=== PATIENT | female | born 2000 | race Caucasian/White ===

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

== ENCOUNTER 2023-06-04 12:59 | Emergency (ER) | payer SELFPAY ==
[~2023-06-04] VITALS: Wt 72.1 kg
[2023-06-04] MEDS ORDERED: VIBRAMYCIN100 MG PO (14:31)
== END 2023-06-04 14:56 | disposition home or self-care (01) ==
LOC: ED 12:59
DX: L03.115 Cellulitis of right lower limb (principal); Z79.2 Long term (current) use of antibiotics; Z79.899 Other long term (current) drug therapy; Z98.890 Other specified postprocedural states

== ENCOUNTER 2025-03-12 10:20 | Emergency (ER) | payer SELFPAY ==
[~2025-03-12] VITALS: Ht 162.5 cm; Wt 60.0 kg
[~2025-03-12 10:20] MED LIST changes: +VIBRAMYCIN100 MG PO
[2025-03-12 10:52] LABS: BASO # 0.1 10*3/uL (0.0-0.1); BASO % 0.6 % (0.0-1.0); EOS # 0.2 10*3/uL (0.0-0.4); EOS % 2.7 % (1.0-4.0); HEMATOCRIT 36.9 % (37.0-47.0); MEAN CELL VOLUME 87.4 fl (81.0-99.0); MEAN CORPUSCULAR HGB 29.6 pg (27.0-31.0); MEAN CORPUSCULAR HGB CONC 33.9 g/dl (33.0-37.0); MEAN PLATELET VOLUME 9.9 fl (9.6-12.3); MONO # 0.5 10*3/uL (0.1-1.0); MONO % 5.4 % (3.0-9.0); NEUT # 6.3 10*3/uL (2.3-7.9); NEUT % 70.5 % (47.0-73.0); PLATELET COUNT AUTOMATED 255 10*3/uL (130-400); RED BLOOD COUNT 4.22 10*6/uL (4.10-5.10); RED CELL DISTRI WIDTH 12.5 % (0-14.5); WHITE BLOOD COUNT 8.9 10*3/uL (4.8-10.8)
[2025-03-12 10:55] LABS: BILIRUBIN Negative (Negative); BLOOD 3+ (Negative); CLARITY Cloudy (Clear); COLOR Red (Yellow); GLUCOSE Negative (Negative); KETONE Negative (Negative); LEUKO ESTERASE 1+ (Negative); NITRITE Negative (Negative); SPECIFIC GRAVITY <= 1.005 (1.001-1.030); UROBILINOGEN 0.2 E.U./dl (0.0-1.0)
[2025-03-12 11:04] LABS: MUCOUS 1+; RBC 16-20 rbc/hpf (0-2)
[2025-03-12 11:09] LABS: BUN 8 mg/dl (9-23); CHLORIDE 104 mmol/L (98-107); POTASSIUM 3.6 mmol/L (3.4-5.1)
== END 2025-03-12 11:35 | disposition home or self-care (01) ==
LOC: ED 10:20
PROVIDERS: Emergency Medicine
DX: O20.9 Hemorrhage in early pregnancy, unspecified (principal); Z98.890 Other specified postprocedural states; Z3A.01 Less than 8 weeks gestation of pregnancy

== ENCOUNTER 2025-04-12 21:46 | Emergency (ER) | payer SELFPAY ==
[~2025-04-12] VITALS: Ht 162.5 cm; Wt 59.9 kg
[2025-04-12] MEDS ORDERED: VIBRAMYCIN100 MG PO (22:04)
[2025-04-12] MEDS ORDERED: Doxycycline Hyclate 100 MG CAPSULE PO ONE (22:05)
[2025-04-12] MEDS ORDERED: cefTRIAXone Sodium 500 MG VIAL IM ONE (22:05)
[2025-04-12 22:15] LABS: BILIRUBIN Negative (Negative); BLOOD 3+ (Negative); CLARITY Cloudy (Clear); COLOR Yellow (Yellow); GLUCOSE Negative (Negative); KETONE Trace (Negative); LEUKO ESTERASE 2+ (Negative); NITRITE Negative (Negative)
[2025-04-12 22:21] LABS: BACTERIA 2+; EPITHELIAL CELLS 16-20; MUCOUS 1+; WBC 31-40 wbc/hpf (0-5)
[2025-04-12] MEDS ORDERED: CIPRO500 MG PO (22:27)
[2025-04-12] MEDS ORDERED: FLUCONAZOLE100 MG PO (22:28)
== END 2025-04-12 22:50 | disposition home or self-care (01) ==
LOC: ED 21:46
PROVIDERS: Nurse Practitioner Family
DX: A64 Unspecified sexually transmitted disease (principal); Z98.890 Other specified postprocedural states

== ENCOUNTER 2025-04-20 17:59 | Emergency (ER) | payer SELFPAY ==
[~2025-04-20] VITALS: Ht 162.5 cm; Wt 59.9 kg
[~2025-04-20 17:59] MED LIST changes: +CIPRO500 MG PO; +FLUCONAZOLE100 MG PO
== END 2025-04-20 21:02 | disposition home or self-care (01) ==
LOC: ED 17:59
DX: S80.12XA Contusion of left lower leg, initial encounter (principal); Z98.890 Other specified postprocedural states; W23.0XXA Caught, crushed, jammed, or pinched between moving objects, initial encounter; Y93.89 Activity, other specified; Y92.810 Car as the place of occurrence of the external cause; Y99.8 Other external cause status